=== PATIENT | male | born 1980 | race Caucasian/White ===

== ENCOUNTER 2020-10-15 17:28 | Emergency (ER) | payer MEDICAID ==
[~2020-10-15] VITALS: Ht 182.9 cm; Wt 131.8 kg
[2020-10-15] MEDS ORDERED: ACYC200C PO (17:44)
[2020-10-15 18:34] LABS: APPEARANCE,URINE CLOUDY (CLEAR); GLUCOSE, URINE (UA) NEGATIVE (NEGATIVE); KETONES,URINE >=80 mg/dL (NEGATIVE); LEUKOCYTE ESTERASE ,URINE SMALL (NEGATIVE); OCCULT BLOOD,URINE SMALL (NEGATIVE); PROTEIN,URINE SEE CONFIRM (NEGATIVE)
[2020-10-15 18:35] LABS: BILIRUBIN,URINE PRELIM. POSITIVE (NEGATIVE)
[2020-10-15 18:47] LABS: NITRATE,URINE POSITIVE (NEGATIVE); SULFOSALICYLIC ACID,URINE 1+ (Negative)
[2020-10-15 18:48] LABS: BACTERIA,URINE Few /HPF (None Seen)
[2020-10-15 18:55] LABS: BASOPHILS % (AUTO) 0.2 % (0.0-2.0); EOSINOPHILS % (AUTO) 0.1 % (1.0-6.0); HEMATOCRIT 42.1 % (41-53); HEMOGLOBIN 14.3 g/dL (13.5-17.5); LYMPHOCYTES % (AUTO) 4.6 % (22.0-44.0); MEAN CORPUSCULAR HGB CONC 34.1 G/dL (31.0-37.0); MEAN CORPUSCULAR VOLUME 91 fL (80-100); MONOCYTES # (AUTO) 0.6 K/uL (0.1-1.0); MONOCYTES % (AUTO) 2.7 % (2.0-9.0); NEUTROPHILS # (AUTO) 19.6 K/uL (1.8-7.7); PLATELET COUNT (AUTO) 313 K/uL (150-450); RED BLOOD CELL COUNT(AUTO) 4.61 MIL/uL (4.50-5.90); RED CELL DISTRIBUTION WIDTH 12.6 % (11.5-14.5)
[2020-10-15 18:57] LABS: NEUTROPHILS % (AUTO) 92.4 % (40.0-70.0)
[2020-10-15 19:09] LABS: ANION GAP 11 mmol/L (8-16); CARBON DIOXIDE 25 mmol/L (22-29); CHLORIDE 101 mmol/L (98-107); CREATININE 0.71 mg/dL (0.60-1.30); GLOMERULAR FILTR. RATE CALC > 60 mL/min (>60); GLUCOSE,RANDOM 162 mg/dL (70-110); POTASSIUM 3.2 mmol/L (3.5-5.1); SODIUM SERUM 137 mmol/L (136-145); UREA NITROGEN, BLOOD 10 mg/dL (7-18)
[2020-10-15 19:12] LABS: ALANINE AMINOTRANSFERASE 32 U/L (12-78); ALBUMIN 3.8 g/dL (3.4-5.0); ALKALINE PHOSPHATASE 88 U/L (46-116); ASPARTATE AMINOTRANSFERASE 14 U/L (15-37); BILIRUBIN,TOTAL 3.5 mg/dL (0.1-1.0); LIPASE 50 U/L (73-393); TOTAL PROTEIN, SERUM 8.1 g/dL (6.4-8.2)
[2020-10-15] MEDS ORDERED: IOVERSOL 350 MG/ML 150 ML VIAL ONE (20:27)
[2020-10-15] MEDS ORDERED: SODIUM CHLORIDE 0.9% 100 ML ONE (20:27)
[2020-10-15] MEDS ORDERED: ONDANSETRON HCL 4 MG/2 ML VIAL IVP ONE (20:30)
[2020-10-15] MEDS ORDERED: ACETAMINOPHEN 1000 MG/ISO-OSM 100 ML IV ONE (20:30)
[2020-10-15] MEDS ORDERED: SODIUM CHLORIDE 0.9% 1,000 ML IV ONE (20:30)
[2020-10-15 20:36] LABS: D-DIMER 1.51 mg/L FEU (0.00-0.50)
[2020-10-15 20:38] LABS: B-TYPE NATRIURETIC PEPTIDE 11 pg/mL (0-100)
[2020-10-15 20:49] LABS: CREATINE KINASE, TOTAL ONLY 107 U/L (39-308)
[2020-10-15 21:12] LABS: INFLUENZA TYPE A NEGATIVE FOR TYPE A (NEGATIVE); INFLUENZA TYPE B NEGATIVE FOR TYPE B (NEGATIVE)
[2020-10-15] MEDS ORDERED: CefTRIAXone 1 GM/DEXTROSE 50 ML IV ONE (22:15)
[2020-10-15] MEDS ORDERED: MetroNIDAZOLE 500 MG/NACL 100 ML IV ONE (23:45)
[2020-10-16 01:24] LABS: BILIRUBIN,DIRECT 0.6 mg/dL (0.00-0.20); BILIRUBIN,TOTAL 3.1 mg/dL (0.1-1.0)
[2020-10-16 02:25] VITALS: BP 138/79
== END 2020-10-16 03:00 | disposition home or self-care (01) ==
LOC: EMS 17:28
DX: K57.92 Diverticulitis of intestine, part unspecified, without perforation or abscess without bleeding (principal); N39.0 Urinary tract infection, site not specified; E80.7 Disorder of bilirubin metabolism, unspecified; Z20.822 Contact with and (suspected) exposure to COVID-19
CPT/HCPCS: 36415; 74177; 76705; 80053; 81001; 82247; 82248; 82550; 83605; 83690; 83880; 84484; 85025; 85379; 85610; 85730; 87040; 87086; 87426; 87804; 93005; 96365; 96367; 96375; 99285; J0131; J0696; J2405; J3490; J7030; J7050; Q9967; U0003